=== PATIENT | male | born 1980 | race Caucasian/White ===

== ENCOUNTER 2020-09-12 11:39 | Emergency (ER) | payer BC, SELFPAY ==
[2020-09-12 11:48] VITALS: BP 107/80; PULSE 71; RESP 12; TEMP 36.6; O2SAT 100
--- NOTE | 2020-09-12 12:03 | ED.EYEPROB ---
HPI - Eye Problem General Chief complaint: Eye Problems Stated complaint: left eye pain Source: patient Mode of arrival: ambulatory Limitations: no limitations History of Present Illness HPI Narrative: Patient is a 40-year-old male who presents with a stye to his left eye. He reports pain, swelling and redness x6 days. He reports using warm compresses without relief. He denies visual changes. He denies all other complaints. MD chief complaint: other (hordelum) Related Data Allergies Allergy/AdvReac Type Severity Reaction Status Date / Time No Known Allergies Allergy Verified 09/12/20 12:10 Review of Systems Review of Systems: Narrative: CONSTITUTIONAL: Denies fever, chills, or sweats. EYES: Denies visual changes, reports redness, itchiness and swelling to the left eye. ENT: Denies rhinorrhea, congestion, sore throat, or otalgia. CARDIOVASCULAR: Denies chest pain, palpitations, or edema. RESPIRATORY: Denies cough or dyspnea. GASTROINTESTINAL: Denies abdominal pain, nausea, vomiting, or diarrhea. GENITOURINARY: Denies dysuria or hematuria. SKIN: Denies rash or itching. MUSCULOSKELETAL: Denies back pain, joint pain, or myalgia. NEUROLOGIC: Denies headache, numbness, dizziness, or weakness. PSYCHIATRIC: Denies anxiety or depression. PMFSH Past Medical History Medical History Tracheo-esophageal fistula Surgical History Surgical History No significant past surgical history Family History Family History Other No significant family history Social History Social History Smoking status: Never smoker Alcohol intake: current Alcohol use details: Occasional Substance use: never Living arrangements: with family Exam Narrative: Exam Narrative: GENERAL: Well-appearing, well-nourished, and in no acute distress. HEAD: Normocephalic, atraumatic. EYES: Erythema and edema to the left upper eyelid, tearing, sclera mildly injected ENT: Mucous membranes pink and moist. CHEST: No respiratory distress. HEART: Regular rate and rhythm. EXTREMITIES: Normal range of motion. No edema. SKIN: Warm, dry, no rash. NEURO: No focal deficits. Alert and oriented x3. Gait steady. PSYCH: Normal affect. No signs of depression or anxiety. Course Vital Signs Vital signs: Vital Signs Temperature 36.6 C 09/12/20 11:48 Pulse Rate 71 09/12/20 11:48 Respiratory Rate 12 09/12/20 11:48 Blood Pressure 107/80 09/12/20 11:48 Pulse Oximetry 100 09/12/20 11:48 Temperature 36.6 C 09/12/20 11:48 Pulse Rate 71 09/12/20 11:48 Respiratory Rate 12 09/12/20 11:48 Blood Pressure 107/80 09/12/20 11:48 Pulse Oximetry 100 09/12/20 11:48 Reviewed MDM - Eye Problem MDM Narrative Medical decision making narrative: Patient has a hordeolum of the left upper eye lid. Symptoms for 5+ days, patient is from out of town and requesting antibiotics as he has had no improvement with warm compresses. Patient to be started on antibiotics at this time. Patient is stable for discharge home with outpatient follow-up as needed. Differential Diagnosis Differential diagnosis: Likely corneal abrasion, conjunctivitis, corneal ulcer and other (Hordeolum) Critical Care Time Critical Care Time Critical Care Time: No Discharge Plan Discharge Clinical Impression: Hordeolum Patient Disposition: Home, Self-Care Condition: Stable Instructions: Antibiotic Jesusita Benitez (ED) Additional Instructions: Take medication as directed. Continue to use warm compresses. Follow-up with ophthalmology if symptoms persist. Prescriptions: New cephalexin 500 mg capsule 500 mg PO Q12H 7 Days Qty: 14 RF: 0 erythromycin 5 mg/gram (0.5 %) ointment 1 applic LEFTEYE DAILY Qty: 1 RF: 0 Follow-up/[facility]
== END 2020-09-12 12:15 | disposition home or self-care (01) ==
PROVIDERS: Emergency Provider Nurse Practitioner
DX: H00.014 Hordeolum externum left upper eyelid (principal)
CPT/HCPCS: 99213; G0463